=== PATIENT | male | born 1965 | race Asian ===

== ENCOUNTER → 2018-01-29 | Outpatient (CLI) | payer OTHER ==
[~2018-01-29] MED LIST: CALCTAB5 PO; FEXO1TAB46 PO; MULTTAB58 PO
--- NOTE | 2018-01-29 15:02 | DIAGNOSTIC IMAGING REPORT ---
ABD/PELVIS NO IV OR ORAL CONT CLINICAL HISTORY: 52 years-old Male presenting with abdominal pain in the left lower quadrant, concern for stone versus diverticulitis. TECHNIQUE: Multidetector CT of the abdomen and pelvis was performed without the use of intravenous contrast. IV contrast: None. A dose lowering technique was used consistent with the principles of ALARA (as low as reasonably achievable). COMPARISON: None. CT DOSE (mGy.cm): The estimated cumulative dose is 290.16 mGy.cm. FINDINGS: [place] topogram: Unremarkable. Lung bases: Minimal basilar opacities, likely atelectasis. Bilateral gynecomastia. Normal heart size. No pericardial or pleural effusion. Liver: Normal morphology. Normal density. Several well-defined hypodense lesions scattered throughout the liver, indeterminate but likely hepatic cysts. Biliary: No gross biliary ductal dilatation allowing for noncontrast technique. Gallbladder decompressed. Pancreas: Normal noncontrast appearance. Spleen: Normal noncontrast appearance. Adrenal glands: Normal noncontrast appearance. Kidneys and ureters: Normal noncontrast appearance. No nephrolithiasis. No hydronephrosis. Normal ureters. Bladder: Circumferential bladder wall thickening. Pelvic organs: Prostate and seminal vesicles normal. Bowel: Normal appendix. No bowel obstruction. Peritoneal cavity: No free fluid or intraperitoneal gas. Lymph nodes: No gross lymphadenopathy allowing for noncontrast technique. Vasculature: Atherosclerosis of the normal caliber abdominal aorta. Abdominal wall: Normal. Musculoskeletal: Normal. IMPRESSION: 1. No acute intra-abdominal pathology allowing for noncontrast technique. 2. Circumferential bladder wall thickening could be due to bladder outlet obstruction. Correlate with urinalysis to exclude cystitis. 3. Multiple hepatic cysts suspected. Electronically signed by: Junior Stauffer M.D. 01/29/2018 3:01 PM Dictated Date/Time: 01/29/2018 2:45 PM
[2018-01-29 17:00] LABS: HEMOGLOBIN A1C 5.6 % (4.5-5.6)
== END | disposition home or self-care (01) ==
LOC: C.CTS 14:31
PROVIDERS: ATTEND Family Medicine
DX: R73.09 Other abnormal glucose (principal); R10.9 Unspecified abdominal pain